=== PATIENT | male | born 1970 | race Caucasian/White ===

== ENCOUNTER 2017-10-15 07:11 | Day surgery (SDC) | payer BC ==
[2017-10-15] MEDS ORDERED: PROPOFOL 10 MG/ML VIAL IV ONE (07:12)
[2017-10-15] MEDS ORDERED: *PACU ONLY* KETAMINE HCL 10 MG/ML (20ML) VIAL IV ONE (07:12)
[2017-10-15] MEDS ORDERED: KETOROLAC 30 MG/ML VIAL IVP ONE (07:12)
[2017-10-15] MEDS ORDERED: MIDAZOLAM HCL 2MG/2ML VIAL IV ONE (07:12)
[2017-10-15] MEDS ORDERED: FENTANYL PF 100MCG/2ML VIAL IV ONE (07:12)
[2017-10-15] MEDS ORDERED: HYDROCODONE/APAP 7.5/325MG TABLET PO ONE (07:12)
[2017-10-15] MEDS ORDERED: DEXAMETHASONE PRESERVATIVE FREE 10MG/ML VIAL IV ONE (07:12)
[2017-10-15] MEDS ORDERED: BUPIVACAINE 0.5% W/EPI MPF 30 ML VIAL IVP ONE (07:12)
[2017-10-15] MEDS ORDERED: LIDOCAINE 1% W/EPI 1:200,000 MPF 30ML SQ ONE (07:12)
--- NOTE | 2017-10-16 06:28 | Operative Note - Ferro ---
DATE OF SURGERY: 10/15/2017. PREOPERATIVE DIAGNOSIS: CERVICAL SPONDYLOSIS WITHOUT MYELOPATHY, ICD-10 CODE M47.812. POSTOPERATIVE DIAGNOSIS: CERVICAL SPONDYLOSIS WITHOUT MYELOPATHY, ICD-10 CODE M47.812. PROCEDURE: Radiofrequency rhizotomy of the bilateral cervical facets 3-4, 4-5, and 5-6. ANESTHESIA: Local sedation. ANESTHESIA PROVIDER: Yolande Hyatt CRNA. INDICATIONS: This patient presents with neck pain. Examination shows tenderness in the cervical spine. Range of motion does cause pain to the neck with extension. Diagnostic studies show multilevel endplate spurring and osteophytic formation. A cervical facet series provided 75 to 85 percent pain control. Due to the failure of therapy and the success of the facet series, the patient presents today for rhizotomy for more long-term relief. DESCRIPTION OF PROCEDURE: Intravenous lines, vital sign monitoring, and intravenous sedation. His position was prone. Prepped and draped with sterile technique. Under imaging of the cervical facet levels 3-4, 4-5, and 5-6 bilaterally, each one of these points on the skin was infiltrated. A 22-gauge rhizotomy cannula was positioned. Stimulation trial was conducted and rhizotomy burn was performed. Local with anti-inflammatory into the sites. Topical antibiotic and sterile dressing applied. Will monitor and evaluate. cc: Reji Clancy M.D. JOB NUMBER: [id number] MTDD
== END 2017-10-15 09:17 | disposition home or self-care (01) ==
LOC: SUR 07:11
PROVIDERS: ATTEND Pain Medicine Interventional Pain Medicine
DX: M47.812 Spondylosis without myelopathy or radiculopathy, cervical region (principal); E78.00 Pure hypercholesterolemia, unspecified
CPT/HCPCS: 64633; 64634 ×2; 01936; J1885; J1100; J3010

== ENCOUNTER 2018-08-19 07:36 | Day surgery (SDC) | payer BC ==
[2018-08-19] MEDS ORDERED: HYDROCODONE/APAP 7.5/325MG TABLET PO ONE (07:37)
[2018-08-19] MEDS ORDERED: FENTANYL PF 100MCG/2ML VIAL IV ONE (07:37)
[2018-08-19] MEDS ORDERED: KETAMINE HCL 100MG/1ML VIAL INJ ONE (07:37)
[2018-08-19] MEDS ORDERED: MIDAZOLAM HCL 2MG/2ML VIAL IV ONE (07:37)
[2018-08-19] MEDS ORDERED: DEXAMETHASONE PRESERVATIVE FREE 10MG/ML VIAL IV ONE (07:37)
[2018-08-19] MEDS ORDERED: PROPOFOL 10 MG/ML VIAL IV ONE (07:37)
[2018-08-19] MEDS ORDERED: DEXAMETHASONE 4 MG/ML 1ML VIAL IJ ONE (09:27)
[2018-08-19] MEDS ORDERED: LIDOCAINE 1% W/EPI 1:200,000 MPF 30ML SQ ONE (09:28)
[2018-08-19] MEDS ORDERED: BUPIVACAINE 0.5% W/EPI MPF 30 ML VIAL SQ ONE (09:29)
--- NOTE | 2018-08-19 12:45 | Operative Note ---
DATE OF SURGERY: 08/19/2018 PREOPERATIVE DIAGNOSIS: CERVICAL SPONDYLOSIS WITHOUT MYELOPATHY, ICD-10 CODE M47.812. SURGERY: RADIOFREQUENCY RHIZOTOMY BILATERAL CERVICAL FACETS 3-4, 4-5, AND 5-6. SURGEON: ANNA MARIE ARAUJO D.O. 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 INDICATION: This patient presents with primary neck pain. Examination showed tenderness in the cervical spine. Range of motion does cause pain to the neck with extension. Diagnostic studies showed diffuse and multilevel facet spondylosis. A facet series with 75+% pain control. Due to the failure of therapy and the success of the facet series, the patient presents for rhizotomy for more long-term relief. SURGERY: Intravenous line, vital sign monitoring, IV sedation, prepped, draped , sterile technique, under imaging, facets cervical 3-4, 4-5, and 5-6 were identified and marked. Skin infiltrated. A #22 gauge rhizotomy cannula positioned. Stimulation trials conducted. Rhizotomy burn performed. Local with anti-inflammatory into the sites. Topical antibiotics. Sterile dressing applied. We will monitor and evaluate. cc: Dr. Reji Clancy JOB NUMBER: [id number] MTDD
== END 2018-08-19 10:22 | disposition home or self-care (01) ==
LOC: SUR 07:36
PROVIDERS: ATTEND Pain Medicine Interventional Pain Medicine
DX: M47.812 Spondylosis without myelopathy or radiculopathy, cervical region (principal); E78.00 Pure hypercholesterolemia, unspecified; G47.33 Obstructive sleep apnea (adult) (pediatric); F17.210 Nicotine dependence, cigarettes, uncomplicated
CPT/HCPCS: 64633; 64634 ×2; 01936; J1100; J3010; J3490

== ENCOUNTER 2019-04-21 05:33 | Day surgery (SDC) | payer BC ==
[2019-04-21] MEDS ORDERED: MIDAZOLAM HCL 2MG/2ML VIAL IV ONE (05:34)
[2019-04-21] MEDS ORDERED: LIDOCAINE 2% MDV (20MG/ML) 20ML VIAL IV ONE (05:34)
[2019-04-21] MEDS ORDERED: FENTANYL PF 100MCG/2ML VIAL IV ONE (05:34)
[2019-04-21] MEDS ORDERED: PROPOFOL 10 MG/ML VIAL IV ONE (05:34)
[2019-04-21] MEDS ORDERED: RINGERS SOLUTION,LACTATED 1,000 ML IV ONE (06:13)
[2019-04-21] MEDS ORDERED: LIDOCAINE 1% W/EPI 1:100,000 MDV 20 ML VIAL SQ ONE (07:33)
[2019-04-21] MEDS ORDERED: DEXAMETHASONE PRESERVATIVE FREE 10MG/ML VIAL SQ ONE (07:34)
[2019-04-21] MEDS ORDERED: BUPIVACAINE 0.5% W/EPI MPF 30 ML VIAL SQ ONE (07:34)
[2019-04-21] MEDS ORDERED: HYDROCODONE/APAP 7.5/325MG TABLET PO ONE (08:18)
--- NOTE | 2019-04-23 12:52 | Operative Note ---
DATE OF SURGERY: 04/21/2019 PREOPERATIVE DIAGNOSIS: Cervical spondylosis without myelopathy, ICD10 code M47.812. OPERATION: Radiofrequency rhizotomy of bilateral cervical facets 3-4, 4-5, 5-6. INDICATIONS: This patient presents with primary neck pain. Examination showed tenderness of the cervical spine. Range of motion does cause pain to the neck with extension. Diagnostic studies show diffuse and multiple-level spondylosis. A facet series 75% relief. Due to the failure of therapy and the success of the facet series, patient presents today for rhizotomy for more long-term relief. PROCEDURE: Intravenous line, vital sign monitoring, IV sedation, prepped and draped in sterile technique. Under imaging, facets levels in the cervical spine in the area of pain were identified and marked, 3-4, 4-5, 5-6 bilaterally. Each one of these points on the skin infiltrated. A 22-gauge rhizotomy cannula positioned. Stimulation trial was conducted. Rhizotomy burn performed. Local with antiinflammatory into the sites. Topical antibiotic and sterile dressing applied. Will monitor and evaluate. [facility]
== END 2019-04-21 08:35 | disposition home or self-care (01) ==
LOC: SUR 05:33
PROVIDERS: ATTEND Pain Medicine Interventional Pain Medicine
DX: M47.812 Spondylosis without myelopathy or radiculopathy, cervical region (principal); E78.00 Pure hypercholesterolemia, unspecified; K21.9 Gastro-esophageal reflux disease without esophagitis; G47.33 Obstructive sleep apnea (adult) (pediatric)
CPT/HCPCS: 64633; 64634 ×2; 01936; J1100; J3010; J7120

== ENCOUNTER 2019-06-23 06:50 | Day surgery (SDC) | payer BC ==
--- NOTE | 2019-06-23 06:33 | History and Physical - Ferro ---
CHIEF COMPLAINT/HISTORY OF CHIEF COMPLAINT: This patient presents with a history of an intractable cervical radiculopathy. Due to the failure of therapy a spinal cord stimulator trial was conducted on 06/03/19 with 75+% pain control. Due to the failure of all therapy and the success of the trial, the patient presents for implantation of a permanent system. PAST MEDICAL HISTORY: Intractable cervical radiculopathy. PAST SURGICAL HISTORY: Knee surgery, gastric surgery, and hernia repair. MEDICATIONS ON ADMISSION: List to be provided. ALLERGIES: None. FAMILY/PSYCHOSOCIAL HISTORY: Social history - Caffeine, social alcohol and smoking. Family history - Diabetes and coronary artery disease. SYSTEMS REVIEW: The patient is appropriate in no acute distress. The remainder of the systems review is positive for degenerative arthritis. PHYSICAL EXAMINATION: No height and weight are identified. Vital signal are not available. HEENT: Within normal limits. LUNGS: Clear. HEART: Rapid and regular. ABDOMEN: Nontender. MUSCULOSKELETAL: Examination of the musculoskeletal system shows diffuse tenderness throughout the cervical spine. Range of motion does produces pain into the neck and extending into the shoulders bilaterally. Upper extremity component producing mild sensory motor changes into the upper extremities extending into the hands and fingers. 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 NEUROLOGIC: Cranial nerves are intact. IMPRESSION: CERVICAL RADICULOPATHY, ICD-10 CODE M54.12. PLAN: The patient is here after a successful trial and the failure of all therapy for implantation of a permanent cervical spinal cord stimulator. The procedure will be considered outpatient, although an overnight stay will be evaluated. cc: Dr. Reji Clancy JOB NUMBER: [id number] MTDD
[~2019-06-23 06:50] MED LIST: ACETAMINOPHEN 1,000 MG/100 ML BTL IVPB ONE; CEFAZOLIN 1 Gram 1 GM/50 ML BAG IVPB ONE; CEFAZOLIN 2 Gram 2 GM/50 ML BAG IVPB ONE; FAMOTIDINE 20MG TABLET PO ONE; MECLIZINE 25 MG TABLET PO ONE; METOCLOPRAMIDE 10 MG TABLET PO ONE
[2019-06-23] MEDS ORDERED: PROPOFOL 10 MG/ML VIAL IV ONE (06:51)
[2019-06-23] MEDS ORDERED: FENTANYL PF 100MCG/2ML VIAL IV ONE (06:51)
[2019-06-23] MEDS ORDERED: LIDOCAINE 2% MDV (20MG/ML) 20ML VIAL IV ONE (06:51)
[2019-06-23] MEDS ORDERED: MIDAZOLAM HCL 2MG/2ML VIAL IV ONE (06:51)
[2019-06-23] MEDS ORDERED: RINGERS SOLUTION,LACTATED 1,000 ML IV ONE (07:35)
[2019-06-23] MEDS ORDERED: CEFAZOLIN 1G VIAL IR ONE (09:03)
[2019-06-23] MEDS ORDERED: LIDOCAINE 1% W/EPI 1:100,000 MDV 20 ML VIAL SQ ONE (10:03)
[2019-06-23] MEDS ORDERED: BUPIVACAINE 0.5% W/EPI MPF 30 ML VIAL SQ ONE (10:03)
[2019-06-23] MEDS ORDERED: ACETAMINOPHEN 325 MG TAB PO PRN (11:15)
[2019-06-23] MEDS ORDERED: TEMAZEPAM 15 MG CAPSULE PO PRN (11:15)
[2019-06-23] MEDS ORDERED: DIPHENHYDRAMINE HCL 25 MG CAPSULE PO PRN ×2 (11:15)
[2019-06-23] MEDS ORDERED: NICOTINE 21 MG/24 HOUR PATCH TD SCH (11:15)
[2019-06-23] MEDS ORDERED: METOCLOPRAMIDE 10 MG TABLET PO PRN (11:15)
[2019-06-23] MEDS ORDERED: SENNOSIDES/DOCUSATE SODIUM UD CAPSULE PO PRN ×2 (11:15)
[2019-06-23] MEDS ORDERED: OXYCODONE/APAP 10MG-325MG TABLET PO PRN (11:15)
[2019-06-23] MEDS ORDERED: DIPHENHYDRAMINE HCL 50 MG/ML VIAL IVP PRN ×2 (11:15)
[2019-06-23] MEDS ORDERED: HYDROCODONE/APAP 7.5/325MG TABLET PO PRN (11:15)
[2019-06-23] MEDS ORDERED: HYDROMORPHONE HCL 2 MG/ML VIAL IM PRN ×2 (11:15)
[2019-06-23] MEDS ORDERED: METOCLOPRAMIDE HCL 10 MG/2 ML VIAL IVP PRN (11:15)
[2019-06-23] MEDS ORDERED: AL HYDROX/MAG HYDROX 30ML UD PO PRN (11:15)
--- NOTE | 2019-06-23 12:49 | Operative Note - Ferro ---
DATE OF SURGERY: 06/23/2019 PREOPERATIVE DIAGNOSIS: CERVICAL RADICULOPATHY, ICD-10 CODE M54.12. OPERATION: 1. FLUOROSCOPICALLY GUIDED EPIDURAL ACCESS LEFT C2-C3, PLACEMENT OF SPINAL CORD STIMULATOR LEAD 1, [employer] 16, 6-ELECTRODES POSITIONED LEFT C2-C3. 2. FLUOROSCOPICALLY GUIDED EPIDURAL ACCESS LEFT T3-T4, PLACEMENT OF SPINAL CORD STIMULATOR LEAD 2, [employer] 16, 6-ELECTRODES POSITIONED RIGHT C2-C3. 3. COMPLEX PROGRAMMING LEAD 1 OVER TWENTY MINUTES FOLLOWED BY COMPLEX PROGRAMMING OF LEAD 2 OVER TWENTY MINUTES. 4. INCISION, SUBCUTANEOUS DISSECTION, AND ANCHORING OF LEAD 1 AND LEAD 2 TO THE SUPRASPINOUS FASCIA WITH A [employer] LOCKING ANCHOR AND NONABSORBABLE SUTURE. 5. INCISION, SUBCUTANEOUS DISSECTION, AND CREATION OF SUBCUTANEOUS POUCH AT LEFT FLANK, AT A SITE PICKED BY THE PATIENT FOR THE GENERATOR, [employer] WAVEWR[employer] PROGRAMMABLE RECHARGEABLE. 6. TUNNELLING BETWEEN LEAD POUCH INTO THE GENERATOR POUCH, EACH LEAD INTERFACED TO THE GENERATOR. 7. PLACEMENT OF GENERATOR POUCH, PLACEMENT OF LEADS INTO THE POUCH, CLOSURE OF BOTH INCISIONS USING STRATAFIX SUTURE 2-0 FASCIA, 3-0 SKIN AND DERMABOND CLOSURE. 8. COMPLEX RECOVERY ROOM PROGRAMMING INTERNAL GENERATOR HOME USE TWO STIMULATORS TWENTY MINUTES. SURGEON: Boom Hanson D.O. INDICATION: This patient presents with a history of an intractable cervical radiculopathy. Due to the failure of all therapies and the success of a stimulator trial, the patient presents today for implantation of a permanent system. PROCEDURE: Intravenous line, vital sign monitoring, IV sedation, prepped and draped, sterile technique. Under imaging the cervical epidural interspace from the left at C2-C3 and C3-C4 were both marked, infiltrated with local, using two standard epidural needles loss of resistance, the space is accessed. Atraumatic. No blood. No CSF. At C2-C3 spinal cord stimulator Lead 1, a [employer] In[employer]ion 16, 6-electrodes was positioned left at C2-C3. With the access at C3-C4, same technique, spinal cord stimulator Lead 2, [employer] In[employer] 16, 6-electrodes was positioned right at C2-C3. With the patient awake and alert complex programming of the two leads was performed, left 20 minutes and right 20 minutes. Ultimately resulting in stimulations patterns across the neck into the shoulders and scapula region in particular left. The patient indicated that we hit all of the areas of the pain. He was given the option to implant, continue to program, or remove and he opted to implant, questions were repeated with the same response. The skin below both both needles was then infiltrated with local, an incision was made, and subcutaneous dissection was conducted to the supraspinous fascia. He had been re-sedated by Anesthesia. Each of the leads was anchored to the supraspinous fascia with a [employer] locking anchor and nonabsorbable suture. At the left flank which was the site picked by the patient for the generator the skin was infiltrated, an incision was made, and subcutaneous dissection was conducted to form a pouch of suitable size and depth for the generator, a [employer] programmable rechargeable Wavewriter. A tunnelling tool was then used to carry the leads into the generator pouch and each lead was interfaced with the generator. Antibiotic irrigation, Bovie for hemostasis at both sites. With the leads interfaced to the generator, the generator was placed into the pouch and then both incisions were closed using Stratafix suture 2-0 fascia, 3-0 skin and a Dermabond closure was then used to approximate the edges of both wounds. He was transferred to the Recovery Room stable. There were no side effects from the procedure or sedation. He was monitored and then prepared for discharge although he was requesting staying overnight for pain control. Because of his history he will be kept overnight and then discharged in the morning. DISCHARGE INSTRUCTIONS: 1. The sites are to remain clear and dry. No showering or bathing in any way that would disrupt dressings. although the Dermabond will allow showering. He should not sit in water. 2. Standard medications will be resumed including antibiotic Levaquin, he will take 500 mg once a day for fourteen days. 3. Office to contact the patient in 12-24 hours to set up a time in 7-10 days for us to evaluate the sites. Until then he is to keep his activities low and controlled. All other instructions were provided. Numbers to contact if problems given. He was then prepared for discharged. JOB NUMBER: [id number] MTDD
[2019-06-23] MEDS: HYDROCODONE/APAP 7.5/325MG TABLET PO PRN ×2 (13:26→15:35)
[2019-06-23] MEDS: CEFAZOLIN 2 Gram 2 GM/50 ML BAG IVPB SCH (16:49)
[2019-06-23] MEDS: METFORMIN 500 MG TABLET PO SCH (17:34)
[2019-06-23] MEDS: OXYCODONE/APAP 10MG-325MG TABLET PO PRN ×2 (18:43→22:37)
[2019-06-23] MEDS ORDERED: 0.9 % SODIUM CHLORIDE 10ML SYR IVP SCH (22:00)
[2019-06-23] MEDS ORDERED: DULOXETINE HCL 30 MG CAPSULE.DR PO SCH (22:00)
[2019-06-23] MEDS ORDERED: GABAPENTIN 300 MG CAPSULE PO SCH (22:00)
[2019-06-23] MEDS ORDERED: SIMVASTATIN 10MG TABLET PO SCH (22:00)
[2019-06-24] MEDS: CEFAZOLIN 2 Gram 2 GM/50 ML BAG IVPB SCH ×2 (00:56→08:11)
[2019-06-24] MEDS: OXYCODONE/APAP 10MG-325MG TABLET PO PRN ×2 (03:04→06:45)
--- NOTE | 2019-06-24 04:43 | RADIOLOGY REPORT ---
EXAMINATION: Cervical Spine Single View EXAM DATE: 06/23/2019 10:31 AM TECHNIQUE: Single AP view INDICATION: SCS IMPLANT, LEADS AND GENERATOR COMPARISON: None ENCOUNTER: Initial FINDINGS: Intraspinal leads are seen in the cervical spine. The superior extent is at the level of C2. The infe rior extent of the electrodes is approximately C5-C6. The generator is not included on the image. Incidental note is made of an old left clavicle fracture. IMPRESSION: Intraspinal leads as noted. Dictated by: Ryan Reyes MD on 06/24/2019 4:40 AM. .
[2019-06-24] MEDS ORDERED: PANTOPRAZOLE SODIUM 40 MG TABLET PO SCH (07:00)
[2019-06-24] MEDS: METFORMIN 500 MG TABLET PO SCH (08:11)
== END 2019-06-24 09:15 | disposition home or self-care (01) ==
LOC: SUR 06:50 → MEDSURG 10:51 → SUR 06-24 09:15
PROVIDERS: ATTEND Pain Medicine Interventional Pain Medicine
DX: M54.12 Radiculopathy, cervical region (principal); E11.9 Type 2 diabetes mellitus without complications; E78.00 Pure hypercholesterolemia, unspecified; K21.9 Gastro-esophageal reflux disease without esophagitis; G47.33 Obstructive sleep apnea (adult) (pediatric); F17.210 Nicotine dependence, cigarettes, uncomplicated
CPT/HCPCS: 36416; 72020; 82948; 95972; C1820; C1883; J0690; J7120